=== PATIENT | male | born 1980 | race Caucasian/White ===

== ENCOUNTER 2019-08-31 08:49 | Emergency (ER) | payer MEDICAID, OTHER ==
[~2019-08-31] VITALS: Ht 172.7 cm; Wt 94.0 kg
[2019-08-31 09:28] VITALS: BP 159/98
[2019-08-31] MEDS ORDERED: KETOROLAC 60MG/2ML VIAL IM STA (09:28)
[2019-08-31] MEDS ORDERED: CYCLOBENZAPRINE 10MG TABLET PO ONE (09:30)
== END 2019-08-31 11:13 | disposition home or self-care (01) ==
LOC: ER 08:49
DX: M54.31 Sciatica, right side (principal); M25.561 Pain in right knee; R56.9 Unspecified convulsions
CPT/HCPCS: 93005; 96372; 99283; J1885